=== PATIENT | female | born 1995 | race Hispanic/Latino ===

== ENCOUNTER 2017-12-13 18:58 | Emergency (ER) | payer BC ==
[2017-12-13 19:36] VITALS: RESP 16; TEMP 99.5; O2SAT 98
[2017-12-13] MEDS ORDERED: Iohexol 240 (50 ml) PO ONE (20:19)
[2017-12-13] MEDS ORDERED: Sodium Chloride 0.9% 1,000 ML IV STA (20:20)
[2017-12-13] MEDS ORDERED: Iohexol 240 (50 ml) ONE (20:28)
--- NOTE | 2017-12-13 20:31 | ED PDOC ---
HPI: Abdomen Time Seen by Provider: 12/13/17 19:00 Chief Complaint (Nursing): Abdominal Pain Chief Complaint (Provider): Abdominal Pain History Per: Patient History/Exam Limitations: no limitations Onset/Duration Of Symptoms: Days Outside of [place] travel?: Yes Other Location:: [place] Current Symptoms Are (Timing): Still Present Location Of Pain/Discomfort: Periumbilical Quality Of Discomfort: Unable To Describe Associated Symptoms: Diarrhea. denies: Fever, Nausea, Vomiting Additional Complaint(s): 22 year old female, with a past medical history of pancolitis, presents to the ED complaining of abdominal pain associated with diarrhea and body aches, onset one day ago. Patient reports she just came back from [place] yesterday. Denies fever and vomiting. PMD: None Past Medical History Reviewed: Historical Data, Nursing Documentation, Vital Signs Vital Signs: Last Vital Signs Temp 99.5 F 12/13/17 19:33 Pulse 101 H 12/13/17 19:33 Resp 16 12/13/17 19:33 BP 100/68 12/13/17 19:33 Pulse Ox 98 12/14/17 00:04 - Medical History PMH: Depression Denies: Chronic Kidney Disease - Surgical History Surgical History: No Surg Hx - Family History Family History: States: Unknown Family Hx - Social History Current smoker - smoking cessation education provided: Yes (a few a day) Alcohol: Occasional Drugs: Denies - Allergies Allergies/Adverse Reactions: Allergies Allergy/AdvReac Type Severity Reaction Status Date / Time No Known Allergies Allergy Verified 12/13/17 19:36 Review of Systems ROS Statement: Except As Marked, All Systems Reviewed And Found Negative Constitutional: Positive for: Other (body aches) Gastrointestinal: Positive for: Abdominal Pain (periumbilical ) Physical Exam - Reviewed Nursing Documentation Reviewed: Yes Vital Signs Reviewed: Yes - Physical Exam Appears: Positive for: Non-toxic, No Acute Distress Head Exam: Positive for: ATRAUMATIC, NORMAL INSPECTION, NORMOCEPHALIC Skin: Positive for: Normal Color, Warm, Dry Eye Exam: Positive for: EOMI, Normal appearance, PERRL ENT: Positive for: Normal ENT Inspection Neck: Positive for: Normal, Painless ROM, Supple Cardiovascular/Chest: Positive for: Regular Rate, Rhythm. Negative for: Murmur Respiratory: Positive for: Normal Breath Sounds. Negative for: Respiratory Distress Gastrointestinal/Abdominal: Positive for: Normal Exam, Soft, Tenderness ( positive perumbilical tenderness) Back: Positive for: Normal Inspection. Negative for: L CVA Tenderness, R CVA Tenderness, Vertebral Tenderness Extremity: Positive for: Normal ROM. Negative for: Pedal Edema, Deformity Neurologic/Psych: Positive for: Alert, Oriented. Negative for: Motor/Sensory Deficits - Laboratory Results Result Diagrams: 12/13/17 21:00 12/13/17 21:00 - ECG O2 Sat by Pulse Oximetry: 98 (RA) Pulse Ox Interpretation: Normal Medical Decision Making Medical Decision Making: Time: 2026 Plan: abdominal pain with diarrhea rule out diverticulitis, rule out gastroenteritis -- CT Abd/Pelvis PO & IV Contrast -- CMP -- CBC with differentials -- Sodium Chloride IV 999 mls/hr -- Zofran 4 mg PO -- Blood Culture -- Urine C&S -- Urinalysis Time: 1200 Abdomen/Pelvis CT FINDINGS: Lower thorax: Heart size is normal. Lung bases are clear ABDOMEN: Liver: Visualized portions liver is unremarkable. Gallbladder and bile ducts: unremarkable Pancreas: unremarkable Spleen: unremarkable Adrenals: unremarkable Kidneys and ureters: unremarkable Stomach and bowel: Stomach is distended with an air-fluid level. Rotation is normal. There is oral contrast throughout the small bowel. There is no obstruction. Ileocecal region is unremarkable. Appendix and terminal ileum are unremarkable.There are no focal colonic abnormalities. PELVIS: Appendix: See stomach and bowel Bladder: unremarkable Reproductive: Uterus and adnexal structures are unremarkable. ABDOMEN and PELVIS: Intraperitoneal space: There is no significant fluid.There is no free air. Bones/joints: There are no acute osseous abnormalities. Soft tissues: unremarkable Vasculature: Vascular structures are unremarkable. Lymph nodes: There is shotty mesenteric adenopathy. Largest nodes are in the right lower quadrant. IMPRESSION: No acute solid visceral or bowel abnormality, no CT findings of appendicitis; mesenteric adenopathy with largest nodes in the right lower quadrant suggest mesenteric adenitis Dictated and Authenticated by: Jaylin Rojas MD 12/14/2017 12:00 AM Eastern Time ([place] & [place]) Scribe Attestation: Documented by Christopher Owen, acting as a scribe for Dr. Kwame Curry MD. Provider Scribe Attestation: All medical record entries made by the Scribe were at my direction and personally dictated by me. I have reviewed the chart and agree that the record accurately reflects my personal performance of the history, physical exam, medical decision making, and the department course for this patient. I have also personally directed, reviewed, and agree with the discharge instructions and disposition. Disposition - Clinical Impression Clinical Impression: Abdominal pain, Mesenteric adenitis - Disposition Referrals: [facility] [Outside] [facility] [Outside] Condition: IMPROVED Additional Instructions: follow up with your primary doctor in 1-2 days take motrin for pain return to the ED with any worsening or concerning symptoms Instructions: Diarrhea in Adolescents and Adults, Acute Abdomen (Belly Pain), Adult (DC), Mesenteric Lymphadenitis Forms: [facility] ([place]ish)
[2017-12-13 21:25] LABS: BASO % 0.2 % (0.0-2.0); EOS # 0.1 K/uL (0.0-0.7); EOS % 1.3 % (0.0-4.0); HEMOGLOBIN 14.6 g/dL (12.0-16.0); LYMPH # 1.1 K/uL (1.0-4.3); MEAN CELL VOLUME 93.3 fl (81.0-99.0); MEAN CORPUSCULAR HEMOGLOBIN 30.9 pg (27.0-31.0); MEAN CORPUSCULAR HGB CONC 33.1 g/dL (33.0-37.0); MEAN PLATELET VOLUME 8.6 fl (7.2-11.7); MONO # 0.5 K/uL (0.0-0.8); MONO % 5.9 % (0.0-10.0); NEUT # 6.8 K/uL (1.8-7.0); NEUT % 79.6 % (50.0-75.0); RBC 4.72 Mil/uL (3.80-5.20); RED CELL DISTRIBUTION WIDTH 13.1 % (11.5-14.5); WHITE BLOOD COUNT 8.5 K/uL (4.8-10.8)
[2017-12-13 22:56] LABS: SQUAMOUS EPITHIAL 1 /hpf (0-5); URINE BILIRUBIN NEGATIVE (NEGATIVE); URINE BLOOD SMALL (NEGATIVE); URINE CLARITY CLEAR (Clear); URINE COLOR COLORLESS (YELLOW); URINE GLUCOSE (UA) NEG (Normal); URINE LEUKOCYTE ESTERASE NEG Leu/uL (Negative); URINE PROTEIN NEGATIVE (NEGATIVE); URINE UROBILINOGEN 0.2-1.0 mg/dL (0.2-1.0)
[2017-12-13 23:08] LABS: ALB/GLOB RATIO 1.2 (1.0-2.1); ALBUMIN 3.7 g/dL (3.5-5.0); ALT/SGPT 21 U/L (9-52); AST/SGOT 31 U/L (14-36); BLOOD UREA NITROGEN 10 mg/dl (7-17); CALCIUM 7.9 mg/dL (8.4-10.2); GFR AFRICAN-AMERICAN > 60; GFR NON-AFRICAN AMERICAN > 60
[2017-12-13] MEDS ORDERED: Sodium Chloride 0.9% 100 ML ONE (23:11)
[2017-12-13] MEDS ORDERED: Iohexol 300 100 ML IJ ONE (23:11)
[2017-12-13] MEDS ORDERED: Potassium Chloride 20 mEq ER Tab PO ONE (23:21)
--- NOTE | 2017-12-14 | CT ---
EXAM: CT Abdomen and Pelvis With Intravenous Contrast EXAM DATE/TIME: 12/13/2017 8:19 PM CLINICAL HISTORY: 22 years old, female; Pain; Abdominal pain; Periumbilical; Additional info: Periumbilical tenderness TECHNIQUE: Axial computed tomography images of the abdomen and pelvis with intravenous contrast. All CT scans at this facility use one or more dose reduction techniques, viz.: automated exposure control; ma/kV adjustment per patient size (including targeted exams where dose is matched to indication; i.e. head); or iterative reconstruction technique. Coronal and sagittal reformatted images were created and reviewed. CONTRAST: 90 mL of [id number] administered intravenously. COMPARISON: There are no prior studies for comparison. FINDINGS: Lower thorax: Heart size is normal. Lung bases are clear ABDOMEN: Liver: Visualized portions liver is unremarkable. Gallbladder and bile ducts: unremarkable Pancreas: unremarkable Spleen: unremarkable Adrenals: unremarkable Kidneys and ureters: unremarkable Stomach and bowel: Stomach is distended with an air-fluid level. Rotation is normal. There is oral contrast throughout the small bowel. There is no obstruction. Ileocecal region is unremarkable. Appendix and terminal ileum are unremarkable.There are no focal colonic abnormalities. PELVIS: Appendix: See stomach and bowel Bladder: unremarkable Reproductive: Uterus and adnexal structures are unremarkable. ABDOMEN and PELVIS: Intraperitoneal space: There is no significant fluid.There is no free air. Bones/joints: There are no acute osseous abnormalities. Soft tissues: unremarkable Vasculature: Vascular structures are unremarkable. Lymph nodes: There is shotty mesenteric adenopathy. Largest nodes are in the right lower quadrant. IMPRESSION: No acute solid visceral or bowel abnormality, no CT findings of appendicitis; mesenteric adenopathy with largest nodes in the right lower quadrant suggest mesenteric adenitis
[2017-12-14] MEDS ORDERED: Potassium Chloride 20 mEq ER Tab PO ONE (00:09)
[2017-12-14 00:15] VITALS: BP 99/64; PULSE 70
== END 2017-12-14 00:22 | disposition home or self-care (01) ==
LOC: H.ER 18:58
DX: I88.0 Nonspecific mesenteric lymphadenitis (principal); F32.9 Major depressive disorder, single episode, unspecified
CPT/HCPCS: 74177; 80053; 81003; 81025; 85025; 87040; 87086; 87804; 96360; 99284; J1885; J7040; Q9966; Q9967